=== PATIENT | male | born 1995 ===

== ENCOUNTER 2016-10-29 14:57 | Emergency (ER) | payer SELFPAY ==
--- NOTE | 2016-10-29 14:59 | ED PDOC ---
Arrival/HPI - General Time Seen by Provider: 10/29/16 14:59 Historian: Patient - History of Present Illness Narrative History of Present Illness (Text): 10/29/16 14:59 21 y/o male, no pmh, nkda, c/o penile discharge and burning urinary sensation x 4 days. pt. stated that he has several partners, last partner with no condomn about 4 days ago, noticed purulant discharge and burning urinary sensation, no testicular or abdominal pain, no fever or chills, no headache or night sweat, no other medical or psychological complaints. Past Medical History - Provider Review Nursing Documentation Reviewed: Yes Family/Social History - Physician Review Nursing Documentation Reviewed: Yes Family/Social History: No Known Family HX, Neoplasm/Cancer Allergies/Home Meds Allergies/Adverse Reactions: Allergies No Known Allergies Allergy (Verified 10/29/16 15:01) Review of Systems - Review of Systems Constitutional: absent: Fatigue, Fevers Eyes: absent: Vision Changes ENT: absent: Hearing Changes Respiratory: absent: SOB, Cough Cardiovascular: absent: Chest Pain Gastrointestinal: absent: Abdominal Pain, Nausea, Vomiting Genitourinary Male: Dysuria, Other (+penile discharge). absent: Frequency, Hematuria, Urinary Output Changes Musculoskeletal: absent: Arthralgias, Myalgias Skin: absent: Rash, Pruritis Neurological: absent: Headache, Dizziness Physical Exam Vital Signs Reviewed: Yes Vital Signs Temp Pulse Resp BP Pulse Ox 10/29/16 15:01 98.3 F 62 16 130/78 100 Temperature: Afebrile Blood Pressure: Normal Pulse: Regular Respiratory Rate: Normal Appearance: Positive for: Well-Appearing, Non-Toxic, Comfortable Pain Distress: Mild Mental Status: Positive for: Alert and Oriented X 3 - Systems Exam Head: Present: Atraumatic, Normocephalic Pupils: Present: PERRL Extroacular Muscles: Present: EOMI Conjunctiva: Present: Normal Mouth: Present: Moist Mucous Membranes Neck: Present: Normal Range of Motion Respiratory/Chest: Present: Clear to Auscultation, Good Air Exchange. No: Respiratory Distress, Accessory Muscle Use Cardiovascular: Present: Regular Rate and Rhythm, Normal S1, S2. No: Murmurs Abdomen: Present: Normal Bowel Sounds. No: Tenderness, Distention, Peritoneal Signs Genitourinary Male: Present: Normal External Genitalia, Penile Discharge. No: Lesions, Testicle Tenderness, Penile Swelling, Masses, Erythema, Hernias, Testicle Swelling Back: Present: Normal Inspection Upper Extremity: Present: Normal Inspection. No: Cyanosis, Edema Lower Extremity: Present: Normal Inspection. No: Edema Neurological: Present: GCS=15, Speech Normal, Motor Func Grossly Intact, Gait Normal, Memory Normal Skin: Present: Warm, Dry, Normal Color. No: Rashes Psychiatric: Present: Alert, Oriented x 3, Normal Insight, Normal Concentration Medical Decision Making ED Course and Treatment: 10/29/16 15:32 -rocephine and azithromycin -UA -Pt. refused HIV and other STD testing. 10/29/16 16:50 -Discharge home with macrobid, pyridium (this will make urine bright red orange color), stay hydrated, please use condom in the future, notify all your previous and current sexual partners for the prophylatic and treatment for possible STD, return to the ER for any new or worsening signs or symptoms. - Lab Interpretations Lab Results: Lab Results 10/29/16 15:00: Urine Color Yellow, Urine Appearance Clear, Urine pH 7.0, Ur Specific [place] 1.020, Urine Protein Negative, Urine Glucose (UA) Negative, Urine Ketones Negative, Urine Blood Trace-lysed H, Urine Nitrate Negative, Urine Bilirubin Negative, Urine Urobilinogen 0.2, Ur Leukocyte Esterase Small H , Urine RBC 0 - 2, Urine WBC 20 - 25, Ur Epithelial Cells 0 - 2, Urine Bacteria Rare I have reviewed the lab results: Yes Interpretation: Abnormal lab values (+UTI) - Medication Orders Current Medication Orders: Discontinued Medications Azithromycin (Zithromax) 1,000 mg PO STAT STA PRN Reason: Protocol Stop: 10/29/16 15:32 Last Admin: 10/29/16 15:48 Dose: 1,000 mg Ceftriaxone Sodium (Rocephin) 250 mg IM STAT STA PRN Reason: Protocol Stop: 10/29/16 15:32 Last Admin: 10/29/16 15:48 Dose: 250 mg - PA / [employer] DIRECTOR / Resident Statement /DO has reviewed & agrees with the documentation as recorded. Disposition/Present on Arrival - Present on Arrival Any Indicators Present on Arrival: No History of DVT/PE: No History of Uncontrolled Diabetes: No Urinary Catheter: No History of Decub. Ulcer: No - Disposition Have Diagnosis and Disposition been Completed?: Yes Diagnosis: At risk for sexually transmitted disease due to unprotected sex, UTI (urinary tract infection) Disposition: HOME/ ROUTINE Disposition Time: 15:33 Patient Plan: Discharge Patient Problems: Current Active Problems Problem Status Onset At risk for sexually transmitted disease due to unprotected sex Acute Condition: GOOD Additional Instructions: -Discharge home with macrobid, pyridium (this will make urine bright red orange color), stay hydrated, please use condom in the future, notify all your previous and current sexual partners for the prophylatic and treatment for possible STD, return to the ER for any new or worsening signs or symptoms. Prescriptions: Nitrofurantoin Macrocrystals [Macrobid] 100 mg PO BID #14 cap Phenazopyridine [Phenazopyridine HCl] 200 mg PO TID #6 tab Referrals: Eron Rivas MD [Primary Care Provider] - Follow up with primary Forms: WORK NOTE
[2016-10-29 15:02] VITALS: TEMP 98.3
[2016-10-29] MEDS ORDERED: cefTRIAXone (Rocephin) 250 mg Inj IM STA (15:31)
[2016-10-29 16:21] LABS: URINE BILIRUBIN NEGATIVE (NEGATIVE); URINE BLOOD TRACE-LYSED (NEGATIVE); URINE GLUCOSE (UA) NEGATIVE (NEGATIVE); URINE LEUKOCYTE ESTERASE SMALL Leu/uL (NEGATIVE); URINE NITRATE NEGATIVE (NEGATIVE); URINE PROTEIN NEGATIVE mg/dL (<30 mg/dL); URINE UROBILINOGEN 0.2 E.U./dL (<1 E.U./dL)
[2016-10-29 16:42] LABS: URINE APPEARANCE CLEAR (CLEAR); URINE COLOR YELLOW (YELLOW)
[2016-10-29 16:47] LABS: URINE RBC 0 - 2 /hpf (0-2); URINE WBC 20 - 25 /hpf (0-6)
[2016-10-29 16:48] LABS: URINE BACTERIA RARE (NEG); URINE EPITHELIAL CELLS 0 - 2 /hpf (0-5)
[2016-10-29 17:00] VITALS: BP 122/68; PULSE 69; RESP 17; O2SAT 98
== END 2016-10-29 16:58 | disposition home or self-care (01) ==
LOC: ED 14:57 → MERGE 14:57 → ED 16:58
DX: N39.0 Urinary tract infection, site not specified (principal); Z91.89 Other specified personal risk factors, not elsewhere classified
CPT/HCPCS: 81001; 87086; 87491; 87591; 96372; 99283; J0696